=== PATIENT | male | born 1980 | race Two or more races ===

== ENCOUNTER 2021-06-01 23:16 | Emergency (ER) | payer OTHER ==
[~2021-06-01] VITALS: Ht 180.3 cm; Wt 81.6 kg
[2021-06-01 23:27] VITALS: BP 129/73
--- NOTE | 2021-06-02 02:12 | NUR ---
PT IS MEDICALLY CLEARED FOR BOOKING AND RELEAED UNDER THE CARE OF [employer] IN STABLE CONDITION. NO DISTRESS NOTED. PT IS AMBULATORY ON STEADY GAIT AND LEFT ON CUFFS.
== END 2021-06-02 02:15 ==
LOC: ER 23:20
DX: U07.1 COVID-19 (principal); Z60.2 Problems related to living alone
CPT/HCPCS: 87426; 99283; C9803